=== PATIENT | female | born 1960 | race Caucasian/White ===

== ENCOUNTER 2017-02-13 09:02 | Emergency (ER) | payer OTHER ==
[~2017-02-13] VITALS: Ht 167.6 cm; Wt 75.3 kg
[2017-02-13] MEDS ORDERED: ONDANSETRON 2MG/ML, 2ML IVPush ONE (09:30)
[2017-02-13] MEDS ORDERED: MORPHINE SULFATE 4 MG/ML, 1ML IVPush PRN (09:30)
[2017-02-13] MEDS ORDERED: SODIUM CHLORIDE 0.9% 1,000 ML IV ONE (09:30)
[2017-02-13] MEDS ORDERED: SODIUM CHLORIDE 0.9% 1,000ML IVBOLUS ONE (09:30)
[2017-02-13] MEDS ORDERED: MORPHINE SULFATE 4 MG/ML, 1ML ONE (10:00)
[2017-02-13] MEDS ORDERED: ONDANSETRON 2MG/ML, 2ML ONE (10:00)
[2017-02-13 10:14] LABS: BLOOD UREA NITROGEN 17 mg/dL (7-18)
[2017-02-13 10:16] LABS: ASPARTATE AMINO TRANSFERASE 15 U/L (15-37)
[2017-02-13 13:01] VITALS: BP 124/61
== END 2017-02-13 13:04 | disposition home or self-care (01) ==
LOC: ED 10:58
DX: N13.2 Hydronephrosis with renal and ureteral calculous obstruction (principal); Z90.710 Acquired absence of both cervix and uterus
CPT/HCPCS: 36415; 71010; 74176; 76700; 80053; 81001; 83690; 85025; 96361; 96374; 99285; J2405; J7030

== ENCOUNTER 2017-02-17 07:01 | Emergency (ER) | payer OTHER ==
[~2017-02-17] VITALS: Ht 167.6 cm; Wt 75.0 kg
[2017-02-17] MEDS ORDERED: SODIUM CHLORIDE 0.9% 1,000 ML IV ONE (07:17)
[2017-02-17] MEDS ORDERED: SODIUM CHLORIDE 0.9% 1,000ML IVBOLUS ONE (07:30)
[2017-02-17] MEDS ORDERED: ONDANSETRON 2MG/ML, 2ML IVPush ONE (07:30)
[2017-02-17] MEDS ORDERED: ONDANSETRON 2MG/ML, 2ML ONE (07:32)
[2017-02-17] MEDS ORDERED: HYDROmorphone 1 MG/ML, 1ML ONE ×2 (07:32→08:04)
[2017-02-17] MEDS: HYDROmorphone 1 MG/ML, 1ML IVPush PRN ×2 (07:34→08:06)
[2017-02-17 08:32] LABS: ASPARTATE AMINO TRANSFERASE 14 U/L (15-37); BLOOD UREA NITROGEN 17 mg/dL (7-18)
[2017-02-17] MEDS ORDERED: METOCLOPRAMIDE 5 MG/ML, 2ML ONE (09:24)
[2017-02-17] MEDS ORDERED: METOCLOPRAMIDE 5 MG/ML, 2ML IVPush ONE (09:30)
[2017-02-17 09:35] VITALS: BP 130/56
== END 2017-02-17 09:37 | disposition home or self-care (01) ==
LOC: ED 07:19
DX: N20.2 Calculus of kidney with calculus of ureter (principal); R11.2 Nausea with vomiting, unspecified; Z87.442 Personal history of urinary calculi
CPT/HCPCS: 36415; 74000; 80053; 83690; 85025; 96361; 96374; 96375; 96376; 99285; J1170; J2405; J2765; J7030

== ENCOUNTER 2017-02-17 09:50 | Day surgery (SDC) | payer OTHER ==
[~2017-02-17] VITALS: Ht 167.6 cm; Wt 71.2 kg
[2017-02-17 10:13] VITALS: BP 142/72
[2017-02-17] MEDS ORDERED: FENTANYL PF 250 MCG/5ML ONE (11:16)
[2017-02-17] MEDS ORDERED: MIDAZOLAM 1 MG/ML, 2ML ONE (11:16)
[2017-02-17] MEDS ORDERED: PROMETHAZINE 25 MG/ML, 1ML ONE (11:51)
[2017-02-17] MEDS ORDERED: SCOPOLAMINE PATCH, 1.5MG PATCH.TD72 TD ONE (11:51)
[2017-02-17] MEDS ORDERED: CEFAZOLIN 1,000 MG ONE (11:59)
[2017-02-17] MEDS ORDERED: PHENYLEPHRINE 10 MG/ML ONE (11:59)
[2017-02-17] MEDS ORDERED: EPHEDRINE 50 MG/ML, 1ML ONE (11:59)
[2017-02-17] MEDS ORDERED: SUCCINYLCHOLINE 20 MG/ML, 10ML ONE (11:59)
[2017-02-17] MEDS ORDERED: ONDANSETRON 2MG/ML, 2ML ONE (11:59)
[2017-02-17] MEDS ORDERED: PROPOFOL 10 MG/ML, 20ML ONE (11:59)
[2017-02-17] MEDS ORDERED: DEXAMETHASONE 4 MG/ML, 1ML ONE (11:59)
[2017-02-17] MEDS ORDERED: PROMETHAZINE 25 MG/ML, 1ML IV PRN (13:00)
[2017-02-17] MEDS ORDERED: FENTANYL PF 100 MCG/2ML IV PRN (13:00)
[2017-02-17] MEDS ORDERED: ONDANSETRON 2MG/ML, 2ML IVPush PRN (13:00)
[2017-02-17] MEDS ORDERED: HYDROmorphone 1 MG/ML, 1ML IV PRN (13:00)
[2017-02-17] MEDS ORDERED: ACETAMINOPHEN 325 MG TABLET PO PRN (13:00)
[2017-02-17] MEDS ORDERED: LABETALOL 5MG/ML, 20ML IV PRN (13:00)
[2017-02-17] MEDS ORDERED: HYDROcodone/APAP 7.5-325MG/15ML UDC PO PRN (13:00)
[2017-02-17] MEDS ORDERED: hydrALAzine 20 MG/ML, 1ML IV PRN (13:00)
[2017-02-17] MEDS ORDERED: EPHEDRINE 50 MG/ML, 1ML IVPush PRN (13:00)
[2017-02-17] MEDS ORDERED: MEPERIDINE/PF 25MG/0.5ML IVPush PRN (13:00)
[2017-02-17] MEDS ORDERED: OXYcodone 5 MG/5 ML ORAL.SOL UDC PO PRN (13:00)
[2017-02-17] MEDS ORDERED: MIDAZOLAM 1 MG/ML, 2ML IV PRN (13:00)
[2017-02-17] MEDS ORDERED: OMNIPAQUE 350 MG/ML, 50 ML BOTTLE ONE (13:30)
[2017-02-17] MEDS ORDERED: OXYcodone 5 MG/5 ML ORAL.SOL UDC ONE (13:37)
[2017-02-17] MEDS ORDERED: FENTANYL PF 100 MCG/2ML ONE (13:37)
== END 2017-02-17 17:45 | disposition home or self-care (01) ==
LOC: OR 09:50 → 4NOR 09:51 → OR 17:45
PROVIDERS: ATTEND Urology
DX: N20.2 Calculus of kidney with calculus of ureter (principal); I25.2 Old myocardial infarction; K21.9 Gastro-esophageal reflux disease without esophagitis; Z88.1 Allergy status to other antibiotic agents
CPT/HCPCS: 52356; 74420; 82360; 88300; C1726; C1758; C1769; C2617; J0330; J0690; J1100; J2250; J2370; J2405; J2704; J3010; Q9967